=== PATIENT | male | born 1935 | race Caucasian/White ===

== ENCOUNTER 2024-04-18 04:14 | Observation (INO) ==
[2024-04-18 04:59] LABS: ABS Eosinophils 0.1 10^3/uL (0.0-0.5); ABS Lymphocytes 1.4 10^3/uL (1.0-4.8); ABS Neutrophils 10.2 10^3/uL (1.5-7.6); Eosinophil % 0.5 %; Hematocrit 37.8 % (38-53); Hemoglobin 12.5 g/dL (13.2-16.3); Lymphocyte % 11.2 %; Mean Corpuscular Hemoglobin 27.1 pg (27-33); Mean Corpuscular Volume 82.1 fL (80-97); Mean Platelet Volume 7.7 fL (7.5-11.2); Platelet Count 296 10^3/uL (150-450); Red Blood Count 4.61 10^6/uL (4.06-5.63); Red Cell Distribution Width 15.9 % (12-17); White Blood Count 12.7 10^3/uL (3.6-10.2)
[2024-04-18 05:47] LABS: Albumin 4.3 g/dL (3.2-5.2); Albumin/Globulin Ratio 1.4 (1-3); Calcium 9.6 mg/dL (8.6-10.3); Creatinine, Serum 1.38 mg/dL (0.67-1.17); Potassium 3.3 mmol/L (3.5-5.0); Total Bilirubin 1.1 mg/dL (0.2-1.0); Total Protein 7.3 g/dL (6.4-8.9); eGFR CKD-EPI 48.9 (>60)
[2024-04-18 05:49] LABS: INR 1.17 (0.83-1.13)
[2024-04-18] MEDS: Potassium EFFERVES 25 meq TAB PO ONE (06:10)
[2024-04-18 06:36] LABS: High Sensitivity Troponin 1 Hr 13 pg/mL (<20)
[2024-04-18] MEDS ORDERED: Senna TAB 8.6 mg TAB PO PRN (11:51)
[2024-04-18] MEDS ORDERED: Polyethylene Glycol 3350 17 GM PACKET PO PRN (11:51)
[2024-04-18] MEDS ORDERED: Ondansetron 4 mg VIAL 2 MG/ML 2 ml VIAL IV PRN (11:51)
[2024-04-18] MEDS ORDERED: Dextrose 50% Syringe 50 ml 25 GM/50 ML SYRINGE IV PUSH PRN (12:39)
[2024-04-18 12:43] LABS: HDL Cholesterol 51.2 mg/dL
[2024-04-18 12:57] LABS: TSH Ultra Thyroid Stim Horm 0.71 mcIU/mL (0.34-5.60)
[2024-04-18] MEDS ORDERED: Regadenoson 0.4 MG/5 ML SYRINGE ONE (13:24)
[2024-04-18] MEDS ORDERED: Aminophylline 25 MG/ML VIAL ONE (14:16)
[2024-04-19 06:31] LABS: ABS Eosinophils 0.1 10^3/uL (0.0-0.5); ABS Lymphocytes 1.4 10^3/uL (1.0-4.8); ABS Monocytes 0.9 10^3/uL (0.0-1.1); ABS Neutrophils 7.1 10^3/uL (1.5-7.6); Eosinophil % 0.6 %; Hematocrit 34.1 % (38-53); Hemoglobin 11.3 g/dL (13.2-16.3); Lymphocyte % 14.5 %; Mean Corpuscular Hemoglobin 27.4 pg (27-33); Mean Corpuscular Hgb Conc 33.2 g/dL (31-36); Mean Corpuscular Volume 82.6 fL (80-97); Mean Platelet Volume 8.1 fL (7.5-11.2); Platelet Count 253 10^3/uL (150-450); Red Blood Count 4.13 10^6/uL (4.06-5.63); Red Cell Distribution Width 16.3 % (12-17); White Blood Count 9.4 10^3/uL (3.6-10.2)
[2024-04-19 07:16] LABS: Calcium 8.9 mg/dL (8.6-10.3); Creatinine, Serum 1.11 mg/dL (0.67-1.17); Magnesium 1.9 mg/dL (1.9-2.7); Potassium 3.4 mmol/L (3.5-5.0); eGFR CKD-EPI 63.5 (>60)
[2024-04-19] MEDS ORDERED: Sulfur Hexaflouride MICROSPHR 25 MG VIAL IV ONE (07:50)
[2024-04-19] MEDS: Isosorbide Mononit ER 30mg TAB PO SCH (10:36)
[2024-04-19 12:24] LABS: C Reactive Protein 152.47 mg/L (<8.01)
[2024-04-19] MEDS: Potassium Chlor 20 meq TAB.ER PO ONE (13:45)
[2024-04-19 13:50] LABS: Erythrocyte Sed Rate 35 mm/Hr (0-19)
[2024-04-19 14:06] VITALS: BP 109/79
== END 2024-04-19 16:00 | disposition home or self-care (01) ==
LOC: EDHOLD 04:14 → ED 04:14 → SUATTDRO 11:51 → MEDTELE 12:18
PROVIDERS: ADMIT Hospitalist; ATTEND Student in an Organized Health Care Education/Training Program